=== PATIENT | female | born 1995 | race Two or more races ===

== ENCOUNTER → 2020-11-01 | Emergency (ER) | payer OTHER ==
[~2020-11-01] VITALS: Ht 172.7 cm; Wt 72.6 kg
== END | disposition home or self-care (01) ==
LOC: ER 20:16
DX: H10.12 Acute atopic conjunctivitis, left eye (principal); J32.8 Other chronic sinusitis

== ENCOUNTER 2021-03-16 18:50 | Emergency (ER) | payer OTHER ==
[~2021-03-16] VITALS: Ht 170.2 cm; Wt 70.3 kg
[2021-03-16] MEDS ORDERED: CIPRO500 MG (19:04)
[2021-03-16] MEDS ORDERED: BACTRIM DS TAB1 EACH PO (21:01)
== END 2021-03-16 21:09 | disposition home or self-care (01) ==
LOC: ER 18:50
DX: N61.1 Abscess of the breast and nipple (principal); T81.49XA Infection following a procedure, other surgical site, initial encounter; K59.09 Other constipation

== ENCOUNTER 2022-02-06 06:43 | Emergency (ER) | payer OTHER ==
[~2022-02-06] VITALS: Ht 172.7 cm; Wt 63.5 kg
[~2022-02-06 06:43] MED LIST: BACTRIM DS TAB1 EACH PO; CIPRO500 MG
== END 2022-02-06 13:57 | disposition home or self-care (01) ==
LOC: ER 06:43
DX: N83.201 Unspecified ovarian cyst, right side (principal); R10.2 Pelvic and perineal pain